=== PATIENT | male | born 1970 | race African-American/Black ===

== ENCOUNTER 2016-10-26 12:15 | Emergency (ER) | payer SELFPAY ==
[~2016-10-26] VITALS: Ht 170.2 cm; Wt 95.0 kg
[~2016-10-26 12:15] MED LIST: CLIN1CAP5 PO; IBUP-232 PO
[2016-10-26 12:16] VITALS: BP 123/80; PULSE 63; RESP 18; TEMP 98.2; O2SAT 96
--- NOTE | 2016-10-26 12:56 | PD ---
HPI Chief Complaint: Pain: Acute or Chronic Time Seen by Provider: 12:50 Travel History International Travel<30 days: No Contact w/Intl Traveler<30days: No Traveled to known affect area: No History of Present Illness HPI 46-year-old male presents to the emergency Department with complaint of bilateral rib cage pain since yesterday after being sick for the past 3 days with cough, nasal congestion, and fever. Reports fever of 101.0 yesterday. Rib cage pain is worse with cough, deep breathing. Reports body aches. Reports vomiting times one yesterday. Denies abdominal pain, nausea, change in stool, change in urine. Denies ear pain or throat pain. Denies chest pain, shortness of breath, wheezing. Took DayQuil and [place] yesterday with minimal relief of symptoms. No one else sick with similar symptoms. Did not receive the flu vaccine. No known allergies. Denies significant past medical history. No other modifying factors or associated signs and symptoms. PFSH Past Medical History Diminished Hearing: No Social History Alcohol Use: No Tobacco Use: No Substance Use: No Allergies-Medications (Allergen,Severity, Reaction): Coded Allergies: No Known Allergies (Unverified , 02/13/15) Reported Meds & Prescriptions Reported Meds & Active Scripts Active Ibuprofen 800 Mg Tab 800 Mg PO Q6HR PRN Tessalon Perles (Benzonatate) 100 Mg Cap 100 Mg PO TID PRN Deltasone (Prednisone) 20 Mg Tab 40 Mg PO DAILY 4 Days start 10/27/2016 Proair Hfa 8.5 GM Inh (Albuterol Sulfate) 90 Mcg/Act Aer 2 Puff INH Q4-6H PRN 108 mcg/actuation Clindamycin Hcl (Clindamycin HCl) 150 Mg Cap 2 Capl PO Q8HR 7 Days Motrin (Ibuprofen) 600 Mg Tab 600 Mg PO Q6 PRN Review of Systems Except as stated in HPI: all other systems reviewed are Neg Physical Exam Narrative GENERAL: Well-nourished, well-developed male patient, in no acute distress; afebrile, nontoxic-appearing SKIN: Warm and dry. No rash. HEAD: Atraumatic. Normocephalic. EYES: Pupils equal and round at 3 mm with brisk reaction. No scleral icterus. No injection or drainage. PERRLA. ENT: Mucosa pink and moist. No erythema or exudates. No uvular edema. No uvular , palatal, or tonsillar deviation. Airway patent. EARS: Bilateral pinnae and external canals appear within normal limits. Bilateral tympanic membranes without erythema, dullness or perforation. NECK: Trachea midline. No lymphadenopathy. CHEST: Nontender throughout without deformity or crepitance. No reproducible tenderness to bilateral rib cages. No retractions or use of accessory muscles. CARDIOVASCULAR: Regular rate and rhythm. No murmur appreciated. RESPIRATORY: No accessory muscle use. Clear to auscultation and decreased in bilateral bases. Breath sounds equal bilaterally. Dry cough. GASTROINTESTINAL: Abdomen soft, non-tender, nondistended. Hepatic and splenic margins not palpable. Bowel sounds are active 4 quadrants. MUSCULOSKELETAL: No obvious deformities. No clubbing. No cyanosis. No edema. NEUROLOGICAL: Awake and alert. Oriented 3. No obvious cranial nerve deficits. Motor grossly within normal limits. Normal speech. Moves all extremities. 5/5 strength to all extremities. PSYCHIATRIC: Appropriate mood and affect; insight and judgment normal. Data Data Last Documented VS Vital Signs Date Time Temp Pulse Resp B/P Pulse Ox O2 Delivery O2 Flow Rate FiO2 10/26/16 12:16 98.2 63 18 123/80 96 Room Air Orders Chest, Single Ap (10/26/16 12:48) Prednisone (Deltasone) (10/26/16 13:00) Albuterol Neb (Albuterol Neb) (10/26/16 13:00) Ibuprofen (Motrin) (10/26/16 13:00) Influenzae A/B Antigen (10/26/16 12:48) MDM Medical Decision Making Medical Screen Exam Complete: Yes Emergency Medical Condition: Yes Medical Record Reviewed: Yes Differential Diagnosis Pneumonia, bronchitis, viral illness, influenza Narrative Course 46-year-old male was cold/flu symptoms. Patient is afebrile and nontoxic- appearing. Reports MAXIMUM TEMPERATURE 101.0 at home. Patient is in no acute distress and oxygen saturation 96% on room air. Lung sounds are clear and equal throughout with decreased lung sounds in bilateral bases. No retractions or tachypnea. Influenza, chest x-ray, albuterol nebulizer, Deltasone, ibuprofen ordered. 1408: Chest x-ray with no acute findings. 1428: Influenza negative. Suspecting acute bronchitis. 1434: Patient reports improvement in symptoms. Lungs are clear and equal throughout with improved air flow on reexamination. Pro-air inhaler, Deltasone , Tessalon Perles, ibuprofen prescribed for home. Patient is medically cleared and stable for discharge. Discussed reasons to return to the emergency department. Instructed patient to follow up with primary care provider. Patient agrees with treatment plan. The patients vital signs are stable and the patient is stable for outpatient follow-up and treatment. Patient discharged home, stable and in no acute distress. Diagnosis Primary Impression: Acute bronchitis Qualified Code: J20.9 - Acute bronchitis, unspecified organism Referrals: Primary Care Physician Patient Instructions: Acute Bronchitis (ED), General Instructions Departure Forms: Tests/Procedures, Work Release Enter return to work date: Oct 28, 2016 Additional Instructions: Ibuprofen or Tylenol as directed and as needed to reduce fever [id number] antihistamines or decongestants as directed and as needed for symptom management Get plenty of sleep/rest Drink plenty of fluids to prevent dehydration [place] diet to encourage nutrition such as crackers, fruit, applesauce, toast, soup etc. Use an air humidifier/turn off ceiling fans Follow-up with your primary care provider within 1 day Return immediately to the emergency department with worsening of symptoms Med/Other Pt SpecificInfo: Prescription(s) given Scripts Ibuprofen 800 Mg [id number] Mg PO Q6HR PRN (PAIN) #30 TAB Ref 0 Prov:Yady Chew 10/26/16 Benzonatate (Tessalon Perles)100 Mg [id number] Mg PO TID PRN (COUGH) #20 CAP Ref 0 Prov:Yady Chew 10/26/16 Prednisone (Deltasone)20 Mg Tab40 Mg PO DAILY 4 Days Ref 0 start 10/27/2016 Prov:Yady ChewP 10/26/16 Albuterol 8.5 GM Inh (Proair Hfa 8.5 GM Inh)90 Mcg/Act Aer2 Puff INH Q4-6H PRN ( SOB/WHEEZING) #1 INHALER Ref 0 108 mcg/actuation Prov:Yady Chew 10/26/16 Disposition: 01 DISCHARGE HOME Condition: Stable Yady Chew Oct 26, 2016 12:56
[2016-10-26] MEDS ORDERED: predniSONE 20 MG TAB PO ONE (13:00)
[2016-10-26] MEDS ORDERED: RESP: ALBUTEROL 2.5 MG/3 ML NEB (SCH) INH ONE (13:00)
[2016-10-26] MEDS ORDERED: IBUPROFEN 800 MG TAB PO ONE (13:00)
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
[2016-10-26] MEDS ORDERED: PRED-503 PO (14:31)
[2016-10-26] MEDS ORDERED: ALBUAER3 INH (14:31)
[2016-10-26] MEDS ORDERED: IBUP800T23 PO (14:31)
[2016-10-26] MEDS ORDERED: BENZ100 PO (14:31)
== END 2016-10-26 16:09 | disposition home or self-care (01) ==
LOC: NEPB 12:15
DX: J20.9 Acute bronchitis, unspecified (principal)
CPT/HCPCS: 71010; 87804; 94664; 99283; J7512; J7613

== ENCOUNTER 2017-10-17 11:44 | Emergency (ER) | payer SELFPAY ==
[~2017-10-17] VITALS: Ht 170.2 cm; Wt 93.0 kg
[~2017-10-17 11:44] MED LIST changes: +ALBUAER3 INH; +BENZ100 PO; +IBUP1TAB7 PO; +PRED-503 PO
[2017-10-17 11:45] VITALS: BP 150/101; PULSE 66; RESP 16; TEMP 99; O2SAT 98
[2017-10-17] MEDS ORDERED: SODIUM CHLOR 0.9% 1000 ML INJ 1,000 ML IV ONE (12:07)
[2017-10-17] MEDS ORDERED: diphenhydrAMINE HCL 50 MG/ML VIAL IVP ONE (12:15)
[2017-10-17] MEDS ORDERED: PROCHLORPERAZINE INJ 10 MG/2 ML VIAL IVP ONE (12:15)
[2017-10-17] MEDS ORDERED: SODIUM CHLORIDE 0.9% FLUSH 10 ML FLUSH IVF PRN (12:15)
[2017-10-17] MEDS ORDERED: KETOROLAC TROMETHAMINE 30 MG/ML (IVP) VIAL IVP ONE (12:15)
[2017-10-17 12:26] VITALS: O2SAT 99
[2017-10-17 12:33] LABS: AUTOMATED NEUTROPHIL # 4.2 TH/MM3 (1.8-7.7); BASOPHIL % 0.6 % (0.0-2.0); EOSINOPHIL # 0.2 TH/MM3 (0-0.4); EOSINOPHIL % 2.3 % (0.0-4.0); HEMATOCRIT 37.6 % (39.0-51.0); HEMOGLOBIN 12.8 GM/DL (13.0-17.0); LYMPH % 25.5 % (9.0-44.0); LYMPHOCYTE # 1.7 TH/MM3 (1.0-4.8); MEAN CELL VOLUME 79.2 FL (80.0-100.0); MEAN CORPUSCULAR HGB CONC 34.1 % (32.0-36.0); MEAN PLATELET VOLUME 9.7 FL (7.0-11.0); MONO % 7.5 % (0.0-8.0); MONOCYTE # 0.5 TH/MM3 (0-0.9); NEUT % 64.1 % (16.0-70.0); PLATELET COUNT 303 TH/MM3 (150-450); RED BLOOD COUNT 4.75 MIL/MM3 (4.50-5.90); RED CELL DISTRIBUTION WIDTH 14.8 % (11.6-17.2); WHITE BLOOD COUNT 6.5 TH/MM3 (4.0-11.0)
[2017-10-17 12:54] LABS: ALKALINE PHOSPHATASE 68 U/L (45-117); ALT (GPT) 47 U/L (12-78); TOTAL BILIRUBIN ADULT 0.3 MG/DL (0.2-1.0); TOTAL PROTEIN 7.5 GM/DL (6.4-8.2)
--- NOTE | 2017-10-17 12:56 | RADRPT ---
EXAM DATE/TIME: 10/17/2017 12:27 [facility] COMPARISON: No previous studies available for comparison. INDICATIONS : Headache behind right eye for three days. RADIATION DOSE: 39.19 CTDIvol (mGy) MEDICAL HISTORY : None SURGICAL HISTORY : None. ENCOUNTER: Initial ACUITY: 3 days PAIN SCALE: 10/10 LOCATION: Right cranial TECHNIQUE: Multiple contiguous axial images were obtained of the head. Using automated exposure control and adj ustment of the mA and/or kV according to patient size, radiation dose was kept as low as reasonably a chievable to obtain optimal diagnostic quality images. DICOM format image data is available electro nically for review and comparison. FINDINGS: CEREBRUM: The ventricles are normal for age. No evidence of midline shift, mass lesion, hemorrhage or acute in farction. No extra-axial fluid collections are seen. POSTERIOR FOSSA: The cerebellum and brainstem are intact. The 4th ventricle is midline. The cerebellopontine angle i s unremarkable. EXTRACRANIAL: The visualized portion of the orbits is intact. SKULL: The calvaria is intact. No evidence of skull fracture. CONCLUSION: Normal examination for a patient of this age. Darin Armas MD on October 17, 2017 at 12:52 Board Certified Radiologist. This report was verified electronically.
[2017-10-17 12:59] LABS: ALBUMIN 3.7 GM/DL (3.4-5.0); AST (GOT) 44 U/L (15-37); BICARBONATE 28.7 MEQ/L (21.0-32.0); BLOOD UREA NITROGEN 11 MG/DL (7-18); CHLORIDE 107 MEQ/L (98-107); CREATININE 0.95 MG/DL (0.60-1.30); GLOMERULAR FILTRATION RATE 103 ML/MIN (>89); GLUCOSE,RANDOM 94 MG/DL (74-106); SODIUM (NA) 141 MEQ/L (136-145)
[2017-10-17] MEDS ORDERED: BUTA1CAP PO (13:50)
--- NOTE | 2017-10-17 13:50 | PD ---
HPI Chief Complaint: Headache Time Seen by Provider: 11:54 Travel History International Travel<30 days: No Contact w/Intl Traveler<30days: No Traveled to known affect area: No History of Present Illness HPI Patient is a 47-year-old male who comes in complaining of a right-sided headache. He says it started 3 days ago. He says in the first day it was coming and going home with an has become more constant. He says the pain is around his right eye and wraps around the back of his head. He denies any nausea or vomiting. He is tried [id number] Tylenol and ibuprofen without relief of his symptoms. He denies any fever chills. He denies any head injuries. Severity is mild to moderate. [facility] Past Medical History Medical History: Denies Significant Hx Diminished Hearing: No Past Surgical History Surgical History: No Previous Surgery Social History Alcohol Use: No Tobacco Use: No Substance Use: No Allergies-Medications (Allergen,Severity, Reaction): Coded Allergies: No Known Allergies (Unverified Adverse Reaction, Unknown, 10/17/17) Reported Meds & Prescriptions Reported Meds & Active Scripts Active No Active Prescriptions or Reported Medications Review of Systems Except as stated in HPI: all other systems reviewed are Neg General / Constitutional: No: Fever, Chills Eyes: Positive: Blurred Vision HENT: Positive: Headaches Cardiovascular: No: Chest Pain or Discomfort Respiratory: No: Shortness of Breath Gastrointestinal: No: Nausea, Vomiting Musculoskeletal: No: Myalgias Skin: No Rash, No Change in Pigmentation Neurologic: No: Weakness, Dizziness, Syncope Physical Exam Narrative GENERAL: Awake and alert, in no acute distress. SKIN: Focused skin assessment warm/dry. No wounds or signs of infection. HEAD: Atraumatic. Normocephalic. EYES: Pupils equal and round and reactive. No scleral icterus. EOMI. ENT: Mucous membranes pink and moist. NECK: Trachea midline. No JVD. CARDIOVASCULAR: Regular rate and rhythm. No murmur appreciated. RESPIRATORY: No accessory muscle use. Clear to auscultation. Breath sounds equal bilaterally. GASTROINTESTINAL: Abdomen soft, non-tender, nondistended. MUSCULOSKELETAL: No obvious deformities. No clubbing. No cyanosis. No edema. NEUROLOGICAL: Awake and alert. No obvious cranial nerve deficits. Motor grossly within normal limits. Normal speech. PSYCHIATRIC: Appropriate mood and affect; insight and judgment normal. Data Data Last Documented VS Vital Signs Date Time Temp Pulse Resp B/P (MAP) Pulse Ox O2 Delivery O2 Flow Rate FiO2 10/17/17 12:26 99 Room Air 10/17/17 11:45 99.0 66 16 Orders Orders Complete Blood Count With Diff (10/17/17 12:07) Comprehensive Metabolic Panel (10/17/17 12:07) Ct Brain W/O Iv Contrast(Rout) (10/17/17 12:07) Ecg Monitoring (10/17/17 12:07) Iv Access Insert/Monitor (10/17/17 12:07) Oximetry (10/17/17 12:07) Sodium Chloride 0.9% Flush (Ns Flush) (10/17/17 12:15) Ketorolac Inj (Toradol Inj) (10/17/17 12:15) Prochlorperazine Inj (Compazine Inj) (10/17/17 12:15) Diphenhydramine Inj (Benadryl Inj) (10/17/17 12:15) Sodium Chlor 0.9% 1000 Ml Inj (Ns 1000 M (10/17/17 12:07) Labs Laboratory Tests Test 10/17/17 12:15 White Blood Count 6.5 TH/MM3 Red Blood Count 4.75 MIL/MM3 Hemoglobin 12.8 GM/DL Hematocrit 37.6 % Mean Corpuscular Volume 79.2 FL Mean Corpuscular Hemoglobin 27.0 PG Mean Corpuscular Hemoglobin Concent 34.1 % Red Cell Distribution Width 14.8 % Platelet Count 303 TH/MM3 Mean Platelet Volume 9.7 FL Neutrophils (%) (Auto) 64.1 % Lymphocytes (%) (Auto) 25.5 % Monocytes (%) (Auto) 7.5 % Eosinophils (%) (Auto) 2.3 % Basophils (%) (Auto) 0.6 % Neutrophils # (Auto) 4.2 TH/MM3 Lymphocytes # (Auto) 1.7 TH/MM3 Monocytes # (Auto) 0.5 TH/MM3 Eosinophils # (Auto) 0.2 TH/MM3 Basophils # (Auto) 0.0 TH/MM3 CBC Comment DIFF FINAL Differential Comment Blood Urea Nitrogen 11 MG/DL Creatinine 0.95 MG/DL Random Glucose 94 MG/DL Total Protein 7.5 GM/DL Albumin 3.7 GM/DL Calcium Level 9.0 MG/DL Alkaline Phosphatase 68 U/L Aspartate Amino Transf (AST/SGOT) 44 U/L Alanine Aminotransferase (ALT/SGPT) 47 U/L Total Bilirubin 0.3 MG/DL Sodium Level 141 MEQ/L Potassium Level 4.6 MEQ/L Chloride Level 107 MEQ/L Carbon Dioxide Level 28.7 MEQ/L Anion Gap 5 MEQ/L Estimat Glomerular Filtration Rate 103 ML/MIN [facility] Medical Decision Making Medical Screen Exam Complete: Yes Emergency Medical Condition: Yes Medical Record Reviewed: Yes Differential Diagnosis tension headache vs migraine vs dehydration Narrative Course Patient is a 47 year old male who comes in complaining of a headache. Exam shows no neurologic abnormalities. IV established, labs sent. Labs show no acute abnormalities. CT head performed shows no acute abnormalities. Last [address] 10/17/17 1207 Signed Impressions: Service Date/Time: Tuesday, October 17, 2017 12:27 - CONCLUSION: Normal examination for a patient of this age. Darin Armas MD Patient given IVF, toradol, Compazine and Benadryl with improvement of his symptoms. He will be discharged with prescription for Fioricet to take as needed for headache. Advised to follow up with a primary care doctor. Advised to return to the ED as needed for any worsening symptoms. Diagnosis Primary Impression: Headache Qualified Codes: R51 - Headache Referrals: [facility] call for appointment Patient Instructions: Acute Headache (ED), General Instructions Additional Instructions: Follow-up with a primary care doctor. You can take Fioricet for severe headaches. Return to the ED as needed for any worsening symptoms. Scripts Oilhtmlagj-Rqenpsmfofmlq-Sragurxc (Fioricet) 50-300-40 Mg Cap 1 CAP PO Q4H Y for HEADACHE, #10 CAP 0 Refills Prov: Maylin Stephens MD 10/17/17 Disposition: 01 DISCHARGE HOME Condition: Stable Maylin Stephens MD Oct 17, 2017 13:50
== END 2017-10-17 14:45 | disposition home or self-care (01) ==
LOC: NEPD 11:44
DX: R51 Headache (principal)
CPT/HCPCS: 70450; 80053; 85025; 96361; 96374; 96375; 99284; J0780; J1200; J1885; J7030